=== PATIENT | male | born 1945 | race American Indian/Alaskan Native ===

== ENCOUNTER 2020-01-08 06:17 | Day surgery (SDC) | payer BC, MEDICARE ==
[2020-01-05 14:27] LABS: Hematocrit 37.6 % (35.5-45.6); Hemoglobin 12.6 gm/dl (11.8-15.2); Mean Corpuscular HGB Conc 33 % (32-34); Mean Corpuscular Volume 80 fl (84-94); Platelet Count 231 K/mm3 (140-440); Red Blood Count 4.69 M/mm3 (3.65-5.03); Red Cell Distribution Width 16.2 % (13.2-15.2)
[2020-01-05 14:48] LABS: Albumin 3.8 g/dL (3.9-5)
[~2020-01-08 06:17] MED LIST: GENTAMICIN/NS 80 MG/100 ML 100 ML IV SCH; ceFAZolin/STERILE WATER 2 GM/20 ML SYRINGE IV NR
[2020-01-08] MEDS ORDERED: ONDANSETRON 4 MG/2 ML INJ IV PRN (07:15)
[2020-01-08] MEDS ORDERED: HYDROmorphone 1 MG/1 ML INJ IV PRN ×2 (07:15)
--- NOTE | 2020-01-08 07:17 | Anesthesia Day of Surgery ---
Anesthesia Day of Surgery - Day of Surgery Patient Examined: Yes Patient H&P Reviewed: Yes Patient is NPO: Yes
--- NOTE | 2020-01-08 07:18 | Anesthesia Consultation ---
Anesthesia Consult and Med Hx Date of service: 01/08/20 - Airway Anesthetic Teeth Evaluation: Edentulous ROM Head & Neck: Adequate Mental/Hyoid Distance: Adequate Mallampati Class: Class II Intubation Access Assessment: Good - Pre-Operative Health Status ASA Pre-Surgery Classification: ASA3 Proposed Anesthetic Plan: General - Pulmonary Hx Smoking: Yes (1/2 PPD X 20 YRS) SOB: No (Activity limited by arthritis) Hx Sleep Apnea: No (JHONATHAN PRE SCREEN HIGH RISK) - Cardiovascular System Hx Hypertension: Yes (X 15 YRS) Hx Peripheral Vascular Disease: Yes (LEGS) - Other Systems Hx Cancer: No - Additional Comments Anesthesia Medical History Comments: COVID NEGATIVE
[2020-01-08] MEDS ORDERED: propofoL 200 MG/20 ML VIAL IV ONE (07:19)
[2020-01-08] MEDS ORDERED: LACTATED RINGERS 1,000 ML IV SCH (08:00)
[2020-01-08] MEDS ORDERED: WATER FOR IRRIG STERILE 2000 ML IR ONE (08:00)
--- NOTE | 2020-01-08 08:20 | Short Stay Summary ---
Short Stay Documentation Date of service: 01/08/20 - History H&P: obtained from office - Allergies and Medications Current Medications: Allergies EDMAR Inhibitors Allergy (Verified 01/01/20 16:45) Swelling Home Medications Medication Instructions Recorded Confirmed Last Taken Type Aspirin [Adult Aspirin] 81 mg PO DAILY 01/01/20 01/08/20 01/01/20 09:00 History NIFEdipine [Adalat cc] 90 mg PO DAILY 01/01/20 01/08/20 01/08/20 04:00 History Valacyclovir HCl [Valacyclovir] 1,000 mg PO BID 01/01/20 01/08/20 01/07/20 17:00 History hydroCHLOROthiazide [HCTZ] 25 mg PO QDAY 01/01/20 01/01/20 Unknown History Olmesartan Medoxomil [Benicar] 40 mg PO DAILY 01/05/20 01/08/20 01/08/20 04:00 History Active Medications Cefazolin Sodium (Ancef/Sterile Water 2 Gm/20 Ml) 2 gm IV PREOP NR Stop: 01/08/20 23:59 Hydromorphone HCl (Dilaudid) 0.25 mg IV Q10MIN PRN PRN Reason: Pain, Moderate (4-6) Stop: 01/08/20 20:00 Hydromorphone HCl (Dilaudid) 0.5 mg IV Q10MIN PRN PRN Reason: Pain , Severe (7-10) Stop: 01/08/20 22:00 Gentamicin Sulfate/Sodium Chloride (Gentamicin/Ns 80 Mg/100 Ml) 100 mls @ 200 mls/hr IV PREOP EMIL Stop: 01/08/20 23:59 Lactated Ringer's (Lactated Ringers) 1,000 mls @ 100 mls/hr IV DIRECT EMIL Last Admin: 01/08/20 07:20 Dose: 100 mls/hr Documented by: Ondansetron HCl (Zofran) 4 mg IV ONCE PRN PRN Reason: Nausea And Vomiting Stop: 01/08/20 16:00 - Brief post op/procedure progress note Date of procedure: 01/08/20 Pre-op diagnosis: elevated psa, bph Post-op diagnosis: same Procedure: cystop, rpg, pus bx Anesthesia: GETA Surgeon: CAITLYN FONSECA Estimated blood loss: minimal Pathology: list (prostate cores) Specimen disposition: to lab Condition: stable - Hospital course Hospital course: bactrim & norco on chart - Disposition Condition at discharge: Stable Disposition: DC-01 TO HOME OR SELFCARE Short Stay Discharge Plan Follow up with: CEM RUEDA MD [Primary Care Provider] - 7 Days
[2020-01-08] MEDS ORDERED: LIDOCAINE MPF (2%) 20 MG/1 ML VIAL 5 ML ONE (08:25)
--- NOTE | 2020-01-08 08:46 | Ultrasound Report ---
Limited transrectal Ultrasound for surgical guidance HISTORY: ELEVATED PSA. TECHNIQUE: Grayscale and color imaging performed. COMPARISON: None IMPRESSION: The prostate measures 5.2 x 3.0 x 4.9 cm and appears diffusely heterogeneous. The volume was 39 cc. Please refer to the operative note for complete details. Signer Name: Ángel Peoples MD Signed: 01/08/2020 8:42 AM Workstation Name: [id number]
--- NOTE | 2020-01-08 08:47 | Post Anesthesia Evaluation ---
- Post Anesthesia Evaluation Patient Participated: Yes Airway Patent: Yes Stable Respiratory Function: Yes Nausea/Vomiting: No Temp > 96.8F: Yes Pain Manageable: Yes Adequeate Hydration: Yes Anesthesia Complications: No Block Receding Appropriately: Not Applicable Patient on Ventilator: No
[2020-01-08 09:06] VITALS: BP 131/58
--- NOTE | 2020-01-08 09:25 | Operative Report ---
PREOPERATIVE DIAGNOSES: Elevated PSA of 10, benign prostatic hypertrophy. POSTOPERATIVE DIAGNOSES: Elevated PSA of 10, benign prostatic hypertrophy. PROCEDURE: Cystoscopy, bilateral retrograde pyelograms, saturation biopsy of prostate (42 grams on ultrasound). SURGEON: Edilson Ferrari MD ANESTHESIA: General. ESTIMATED BLOOD LOSS: Minimal. FLUIDS: Crystalloid. COMPLICATIONS: No complications. INDICATIONS: This patient is a 74-year-old gentleman seen in the office for an elevated PSA and BPH. He had previous prostate ultrasound biopsy in [address] Black for a PSA of 7. We have been following him conservatively. Most recently, his PSA increased to 10. He presents now for surgical intervention. DESCRIPTION OF PROCEDURE: The patient was taken to the operative suite, placed in supine position. After adequate general anesthesia, he was placed in a dorsal lithotomy position, prepped and draped in a sterile fashion. Pancystourethroscopy was performed with 22-Danish Storz cystoscope, no urethral abnormalities. His prostate displayed some mild trilobar obstruction primarily a high median bar. Bladder, no tumors or stones were noted. Both ureteral orifices were in normal position. Bilateral retrograde pyelograms were obtained with an 8-Danish [place] catheter and 8 mL of contrast. No filling defects or obstruction. He was found to have bilateral J-hooking. Next, using a transrectal prostate ultrasound, volumes were taken, total volume of 42 mL. No suspicious lesions were noted. Template saturation biopsy 12-core with 2 cores in each specimen. The patient tolerated the procedure well as bladder was drained. He was extubated and taken to recovery room in stable condition. He will go home on Bactrim and Gorin. JOB# [id number] [facility]
--- NOTE | 2020-01-08 10:34 | Fluoroscopy Report ---
FLUOROSCOPY RETROGRADE UROGRAPHY HISTORY: Elevated PSA levels FINDINGS: Fluoroscopy was provided by radiology during retrograde urography by the urologist. There i s normal filling of both renal collecting systems. No filling defect or abnormal dilatation is identi fied. IMPRESSION: Unremarkable bilateral retrograde pyelograms Fluoroscopy time: 9 seconds Fluoroscopic images: 5 Signer Name: Dickson Carlson Jr, MD Signed: 01/08/2020 10:30 AM Workstation Name: [id number]
== END 2020-01-08 06:18 | disposition home or self-care (01) ==
LOC: OR 06:17
PROVIDERS: ATTEND Urology
DX: R97.20 Elevated prostate specific antigen [PSA] (principal); N40.0 Benign prostatic hyperplasia without lower urinary tract symptoms; Z20.828 Contact with and (suspected) exposure to other viral communicable diseases; F17.210 Nicotine dependence, cigarettes, uncomplicated; I73.9 Peripheral vascular disease, unspecified; E78.00 Pure hypercholesterolemia, unspecified; I10 Essential (primary) hypertension; M19.90 Unspecified osteoarthritis, unspecified site; Z79.899 Other long term (current) drug therapy; Z79.82 Long term (current) use of aspirin; Z87.440 Personal history of urinary (tract) infections; Z80.42 Family history of malignant neoplasm of prostate; Z88.8 Allergy status to other drugs, medicaments and biological substances
CPT/HCPCS: 36415; 55706; 74420; 76872; 80053; 85027; 88305; 88344; A4217; C1758; J0690; J1170; J1580; J2704; J7120; Q9967; U0003

== ENCOUNTER 2022-01-26 08:09 | Outpatient (CLI) | payer BC, MEDICARE ==
--- NOTE | 2022-01-26 14:14 | Vascular Lab Report ---
ULTRASOUND RENAL ARTERY DUPLEX IMAGING INDICATION / CLINICAL INFORMATION: I10 ESSENTIAL (PRIMARY) HYPERTENSION. COMPARISON: CT abdomen pelvis 02/01/2020. FINDINGS: RIGHT KIDNEY: Size = 6.8 cm. - Echogenicity: Normal. - Cortical thickness: Severe thinning. - Hydronephrosis: None. - Cyst / Mass: None. - Stones: None seen.. - Renal resistive indices (RI): Absent color Doppler blood flow. - Renal/aortic ratio (RAR): 0.4 LEFT KIDNEY: Size = 11.3 cm. - Echogenicity: Normal. - Cortical thickness: Normal. - Hydronephrosis: None. - Cyst / Mass: None. - Stones: None seen.. - Renal resistive indices (RI): 0.9, 0.8, 0.8 (Normal < 0.70) - Renal/aortic ratio (RAR): 1.9 (Normal < 3.5) URINARY BLADDER: No significant abnormality. FREE FLUID: None. ADDITIONAL FINDINGS: Elevated velocities noted in the left renal artery with highest peak systolic ve locity measuring 238 cm/s. Minimal color Doppler blood flow is noted in the right proximal renal stephanie ry stent with absence of color Doppler blood flow in the right kidney. IMPRESSION 1. Right renal atrophy with absent color Doppler blood flow. Minimal color Doppler flow is noted in t he right proximal renal artery stent however no appreciable blood flow noted in the mid and distal re nal artery. 2. Findings suggestive of renal artery stenosis on the left of less than 60%. Scribed by: Leticia Swan RDMS, PEDRO, GENE Scribed: 01/26/2022 12:16 PM I have reviewed the images, agree with this report, and edited this report as needed. Signer Name: Douglas Perez MD Signed: 01/26/2022 2:10 PM Workstation Name: [id number]
== END 2022-01-26 08:10 | disposition home or self-care (01) ==
LOC: VAS 08:09
PROVIDERS: ATTEND Specialist
DX: N26.1 Atrophy of kidney (terminal) (principal); I10 Essential (primary) hypertension
CPT/HCPCS: 93975